=== PATIENT | male | born 1950 | race Caucasian/White ===

== ENCOUNTER 2023-11-27 11:26 | Inpatient (IN) | payer OTHER ==
[~2023-11-27 11:26] MED LIST: Iopamidol-370 76% 500 ML MDV (1 ML CHARGE) ONE
[2023-11-27 12:32] LABS: #Basophils 0.03 10x3/uL (0.0-0.2); %Basophils 0.3 % (0.0-1.0); %Eosinophils 0.5 % (0.0-10.0); %Lymphocytes 7.4 % (21.0-51.0); %Monocytes 10.8 % (0.0-10.0); %Neutrophils 80.5 % (42.0-75.0); Hematocrit 47.2 % (42.0-52.0); Hemoglobin 16.2 g/dL (14.0-18.0); Mean Corpuscular HGB CONC 34.3 g/dL (32.0-36.0); Mean Corpuscular Hemoglobin 29.5 pg (27.0-31.0); Platelet Count 213 10x3/uL (130-400); RBC Distribution Width 13.1 % (11.5-14.5); Red Blood Cell (RBC) Count 5.49 mill/uL (4.70-6.10)
[2023-11-27 12:35] LABS: Bacteria/HPF None Seen HPF (None Seen); Bilirubin Negative (Negative); Blood, Urine Negative (Negative); CAUTI Indications for Culture Dysuria,urgency,freq; Clarity Clear (Clear); Glucose, Urine (Dipstick) Normal (Negative); Ketone, Urine Trace mg/dL (Negative); Leukocyte Negative Leu/uL (Negative); Nitrite Negative (Negative); Protein, Urine (Dipstick) 10 mg/dL (Neg-Trace); RBC/HPF 0-3 HPF (0-3); Specific Gravity, Urine 1.018 (1.002-1.036); Squamous Epithelial None Seen HPF (0-3); WBC/HPF 0-3 HPF (0-3); pH, Urine 7.5 (5.0-9.0)
[2023-11-27 12:37] LABS: Urine Culture Reflex No No
[2023-11-27 12:58] LABS: ALT (SGPT) 29 U/L (8-55); AST (SGOT) 24 U/L (5-34); Albumin 4.2 g/dL (3.4-4.8); Alkaline Phosphatase 62 U/L (40-110); Anion Gap 14 mmol/L (10-20); BUN (Urea Nitrogen) 13 mg/dL (8.4-25.7); Bilirubin, Total 0.9 mg/dL (0.2-1.2); Calc. Creatinine Clearance 0 mL/min (70-130); Calcium 9.8 mg/dL (7.8-10.44); Carbon Dioxide 23 mmol/L (23-31); Chloride 101 mmol/L (98-107); Estimated GFR 90; Glucose 107 mg/dL (83-110); Lipase 35 U/L (8-78); Potassium 3.6 mmol/L (3.5-5.1); Protein, Total 7.2 g/dL (5.8-8.1); Sodium 134 mmol/L (136-145)
[2023-11-27] MEDS ORDERED: Morphine 4 MG/ML VIAL ONE (13:56)
[2023-11-27] MEDS ORDERED: Ondansetron PF 4 MG/2 ML Vial ONE (13:56)
[2023-11-27] MEDS ORDERED: Ondansetron PF 4 MG/2 ML Vial IVP PRN (16:15)
[2023-11-27] MEDS ORDERED: hydrALAZINE 20 MG/ML VIAL SLOW IVP PRN (16:15)
[2023-11-27] MEDS ORDERED: Sodium Chloride 0.9% 100 ML ONE (16:16)
[2023-11-27] MEDS ORDERED: Piperacillin/Tazobactam 3.375 GM VIAL ONE (16:16)
[2023-11-27] MEDS: Piperacillin/Tazobactam 3.375 GM in Sodium Chloride 0.9% 100 ML IVPB SCH (20:01)
[2023-11-27] MEDS: Morphine 4 MG/ML VIAL SLOW IVP PRN (20:13)
[2023-11-28] MEDS: Lactated Ringer's 1,000 ML IV SCH (00:04)
[2023-11-28 05:25] LABS: #Basophils 0.05 10x3/uL (0.0-0.2); %Basophils 0.6 % (0.0-1.0); %Eosinophils 1.8 % (0.0-10.0); %Lymphocytes 11.8 % (21.0-51.0); %Monocytes 18.1 % (0.0-10.0); %Neutrophils 67.5 % (42.0-75.0); Hematocrit 43.2 % (42.0-52.0); Hemoglobin 14.2 g/dL (14.0-18.0); Mean Corpuscular HGB CONC 32.9 g/dL (32.0-36.0); Mean Corpuscular Hemoglobin 29.4 pg (27.0-31.0); Mean Corpuscular Volume 89.4 fL (78.0-98.0); Platelet Count 201 10x3/uL (130-400); RBC Distribution Width 13.2 % (11.5-14.5); Red Blood Cell (RBC) Count 4.83 mill/uL (4.70-6.10)
[2023-11-28 05:52] LABS: ALT (SGPT) 49 U/L (8-55); AST (SGOT) 39 U/L (5-34); Albumin 3.7 g/dL (3.4-4.8); Alkaline Phosphatase 79 U/L (40-110); Anion Gap 12 mmol/L (10-20); BUN (Urea Nitrogen) 14 mg/dL (8.4-25.7); Bilirubin, Total 1.2 mg/dL (0.2-1.2); Calc. Creatinine Clearance 0 mL/min (70-130); Calcium 9.1 mg/dL (7.8-10.44); Carbon Dioxide 28 mmol/L (23-31); Chloride 100 mmol/L (98-107); Estimated GFR 86; Globulin 2.6 g/dL (2.4-3.5); Glucose 109 mg/dL (83-110); Potassium 3.7 mmol/L (3.5-5.1); Protein, Total 6.3 g/dL (5.8-8.1); Sodium 136 mmol/L (136-145)
[2023-11-28] MEDS ORDERED: EPINEPHrine 1 MG/ML VIAL ONE (07:26)
[2023-11-28] MEDS ORDERED: Bupivacaine 0.25% HCL 30 ML VIAL ONE (07:26)
[2023-11-28] MEDS ORDERED: PROPOFOL 20 ML ONE (07:36)
[2023-11-28] MEDS ORDERED: Rocuronium Bromide 10 MG/ML (10ML VIAL) ONE (07:36)
[2023-11-28] MEDS ORDERED: fentaNYL PF 100 MCG/2 ML SYRINGE ONE (07:38)
[2023-11-28 08:08] VITALS: BMI 29.5
[2023-11-28] MEDS ORDERED: PHENYLEPHRINE-NS 100 MCG/ML 10 ML SYRINGE ONE (08:16)
[2023-11-28] MEDS ORDERED: Ondansetron PF 4 MG/2 ML Vial ONE (08:20)
[2023-11-28] MEDS ORDERED: diphenhydrAMINE 50 MG/ML VIAL ONE (08:20)
[2023-11-28] MEDS ORDERED: ePHEDrine Sulfate 50 MG/10 ML VIAL ONE (08:31)
[2023-11-28] MEDS ORDERED: Ondansetron HCl/PF 4 MG/2 ML Vial IVP PRN (08:32)
[2023-11-28] MEDS ORDERED: SUGAMMADEX SODIUM 200 MG/2 ML VIAL ONE (09:11)
[2023-11-28] MEDS ORDERED: Ketorolac Tromethamine 30 MG (1 mL) VIAL ONE (09:17)
[2023-11-29] MEDS: HYDROcodone/Acetaminophen 7.5/325 mg Tablet PO PRN (01:58)
[2023-11-29 07:03] LABS: #Basophils 0.03 10x3/uL (0.0-0.2); %Basophils 0.3 % (0.0-1.0); %Eosinophils 0.9 % (0.0-10.0); %Lymphocytes 12.9 % (21.0-51.0); %Monocytes 17.2 % (0.0-10.0); %Neutrophils 68.1 % (42.0-75.0); Hematocrit 40.8 % (42.0-52.0); Hemoglobin 13.9 g/dL (14.0-18.0); Mean Corpuscular HGB CONC 34.1 g/dL (32.0-36.0); Mean Corpuscular Hemoglobin 29.7 pg (27.0-31.0); Mean Corpuscular Volume 87.2 fL (78.0-98.0); Mean Platelet Volume 11.1 fL (7.4-10.4); Platelet Count 191 10x3/uL (130-400); RBC Distribution Width 13.3 % (11.5-14.5); Red Blood Cell (RBC) Count 4.68 mill/uL (4.70-6.10)
[2023-11-29 07:43] LABS: ALT (SGPT) 66 U/L (8-55); AST (SGOT) 52 U/L (5-34); Albumin 3.4 g/dL (3.4-4.8); Alkaline Phosphatase 76 U/L (40-110); Anion Gap 11 mmol/L (10-20); BUN (Urea Nitrogen) 13 mg/dL (8.4-25.7); Bilirubin, Total 1.4 mg/dL (0.2-1.2); Calc. Creatinine Clearance 86 mL/min (70-130); Calcium 8.9 mg/dL (7.8-10.44); Carbon Dioxide 28 mmol/L (23-31); Chloride 99 mmol/L (98-107); Estimated GFR 80; Globulin 2.7 g/dL (2.4-3.5); Glucose 105 mg/dL (83-110); Potassium 3.4 mmol/L (3.5-5.1); Protein, Total 6.1 g/dL (5.8-8.1); Sodium 135 mmol/L (136-145)
[2023-11-29 12:54] VITALS: BP 120/79; TEMP 98.2
== END 2023-11-29 15:33 | disposition home or self-care (01) | DRG 419 ==
LOC: ERS 11:26 → SURG B 16:24
PROVIDERS: ADMIT Surgery; ATTEND Surgery
PROC: 0FT44ZZ Resection of Gallbladder, Percutaneous Endoscopic Approach (ICD-10-PCS; principal; 2023-11-28)
DX: K80.00 Calculus of gallbladder with acute cholecystitis without obstruction (principal); Z88.8 Allergy status to other drugs, medicaments and biological substances; Z79.899 Other long term (current) drug therapy; I10 Essential (primary) hypertension; Z98.890 Other specified postprocedural states
CPT/HCPCS: 36415; 74177; 80053; 81001; 83690; 85025; 88304; 93005; 96365; 96375; C1713; J0171; J0665; J1200; J1885; J2272; J2405; J2543; J2704; J7120; Q9967